=== PATIENT | male | born 1970 | race Caucasian/White ===

== ENCOUNTER 2019-08-11 10:13 | Emergency (ER) | payer OTHER, SELFPAY ==
[2019-08-11 10:37] VITALS: BP 149/103; PULSE 84; RESP 20; TEMP 36.2; O2SAT 97
--- NOTE | 2019-08-11 11:17 | ED.URI ---
HPI - URI/Sore Throat General Chief Complaint: Upper Respiratory Infection Stated Complaint: cough/congested/eyes red Time Seen by Provider: 08/11/19 11:23 History of Present Illness HPI Narrative: A 49 y/o male smoker presents to the with a cough for the past 3 days. . He reports mild nasal congestion mild sore throat when he swallows and fatigue. He notes that his son developed a cough and sore throat roughly 1 week ago and khadra this younger son and had flu B and strep at the end of June. He also notes that this morning when he woke up his eye was pink and crusted shut, so he decided to come to the ED. He denies taking anything for his symptoms or any fevers, ear ache, SOB, CP, edema, or any other medical complaints at this time.He states that he has been to [facility] twice in the past couple weeks, [facility] [employer] [facility] , and he returned on 08/04/19. Patient is advised of possible causes [viral, bacterial, etc.], and will treat broadly. Patient advised that if he desires unavailable, higher testing to call or [email or web address], or call [facility] through [phone] elicited complaint: cough Onset (ago): day(s) (3) Context: sick contacts (son) and recent travel (to [place]) Associated symptoms: sore throat (mild when he swallows) and other (fatigue) Treatments prior to arrival: none Related Data Allergies Allergy/AdvReac Type Severity Reaction Status Date / Time No Known Allergies Allergy Verified 08/11/19 10:40 Review of Systems Review of Systems: Narrative: General/Constitutional: No weight loss,fever. Reports fatigue. Eyes: N0: Redness,discharge Ears/Nose/Throat: No: Epistaxis,ear discharge. Reports a mild sore throat when he swallows. Respiratory: Denies: Hemoptysis or SOB. He reports a cough. Cardio: Denies: chest pain or edema. Gastrointestinal: No Vomiting, Bleeding-rectal Skin: No Lumps, eruption Neurologic: No Focal Weakness,Sz Hematologic: Denies: Petechiae/Purpura Psychiatric: No: Suicida ideationl All Other Systems: Reviewed and Negative [facility] Past Medical History Medical History (Updated 08/11/19 @ 14:31 by Stefan Woodall MD) Medical history unknown Surgical History Surgical History (Updated 08/11/19 @ 11:41 by Andrae Lopez) Surgical history unknown Social History Social History (Updated 08/11/19 @ 11:41 by Andrae Lopez) Smoking status: Smoker, status unknown Exam Narrative: Exam Narrative: General Appearance: Well appearing, Well nourished EYE: PERRLA, Conjunctiva injected OD , left clear Ears: Auditory canal normal, TM normal Nose: Rhinorrhea, Mucousal erythema Mouth/Throat: MM moist, Uvula midline, Pharyngeal erythema Neck: Supple, No adenopathy Respiratory: No respiratory distress, airway patent Musculoskeletal: Non tender, Normal strength Skin: Warm, Dry Neurological: A&O x3, CN II-XII intact Psychiatric: Normal mood, Normal affect Course Vital Signs Vital signs: Vital Signs Temperature 97.2 F L 08/11/19 10:37 Pulse Rate 84 08/11/19 10:37 Respiratory Rate 20 08/11/19 10:37 Blood Pressure 149/103 H 08/11/19 10:37 Pulse Oximetry 97 08/11/19 10:37 Temperature 97.2 F L 08/11/19 10:37 Pulse Rate 84 08/11/19 10:37 Respiratory Rate 20 08/11/19 10:37 Blood Pressure 149/103 H 08/11/19 10:37 Pulse Oximetry 97 08/11/19 10:37 MDM - URI/Sore Throat Lab Data Labs: Influenza A Screen Negative Reference Range: Negative Influenza B Screen Negative Reference Range: Negative Discharge Plan Discharge Clinical Impression: History of viral infection Acute conjunctivitis, right eye Qualifiers: Acute conjunctivitis type: unspecified Qualified Code(s): H10.31 - Unspecified acute conjunctivitis, right eye Patient Disposition: Home, Self-Care Condition: Stable Instructions: Antibiotic Form, Influenza (ED), Conjunctivitis (ED) Additional Instru
== END 2019-08-11 12:03 | disposition home or self-care (01) ==
PROVIDERS: Emergency Provider Emergency Medicine; PCP Family Medicine
DX: H10.31 Unspecified acute conjunctivitis, right eye (principal); Z86.19 Personal history of other infectious and parasitic diseases
CPT/HCPCS: 87804; 99213; G0463

== ENCOUNTER 2022-12-21 12:36 | Outpatient (CLI) | payer OTHER, SELFPAY ==
--- NOTE | ~2022-12-21 | US_ITS ---
US scrotum doppler INDICATION: Right testicular pain and swelling TECHNIQUE: Testicular sonogram utilizing grayscale and color Doppler FINDINGS: The testes are normal in size and appearance. No focal lesions are seen. The right testes measures 4.4 x 3.3 x 3.7 cm centimeters, and the left testis measures 4.4 x 3 x 4.3 cm cm. There is n ormal vascular flow to both testes. The right and left epididymides appear normal. There are small-moderate bilateral hydroceles. There are bilateral varicoceles. IMPRESSION: 1. Bilateral varicoceles. 2: Small-moderate bilateral hydroceles. Reviewed, dictated and finalized at location A.
== END 2022-12-21 12:37 ==
PROVIDERS: PCP Physician Assistant; Visit Provider Physician Assistant
DX: I86.2 Pelvic varices (principal); I86.1 Scrotal varices; N43.3 Hydrocele, unspecified; N50.811 Right testicular pain
CPT/HCPCS: 76870; 93976

== ENCOUNTER 2023-02-28 08:59 | Outpatient (CLI) | payer OTHER, SELFPAY ==
--- NOTE | 2023-03-01 19:27 | WPDSLEEPSTUD ---
Sleep Study Date of Study: 02/28/23 Ordering Provider: Loretta Cardenas, LEATHER ROLLER Interpreting Physician: Seema Guzmán MD Sleep Study Type: Split Polysomnogram Height: 1.78 m Weight: 127.006 kg Body Mass Index: 40.1 Neck Circumference (inches): 18 [place]: 9 Reason for Sleep Study Fatigue for months Sleep History Vin Juarez is a 52-year-old man with loud snoring and episodes of waking at night feeling short of breath. He has had constant fatigue for months. He has difficulty falling asleep and staying asleep. He has a difficult time waking in the morning. He always awakens from sleep feeling short of breath. He frequently awakens at night with heartburn, belching or coughing. He always snores loudly enough that others complain. On occasion, he has difficulty sleeping when he has a cold. He occasionally wakes up gasping for breath at night. He frequently has breathing problems at night reported to him by others. Rarely sweats excessively at night. He occasionally notices his heart pounding irregularly at night. He occasionally falls asleep during the day. He does not fall asleep involuntarily or while driving. He does not have loss of muscle tone with strong emotion. He does not have daytime difficulties due to excessive sleepiness, he is a telecommunications cabinet installer. He does not feel paralyzed on waking or falling asleep. He does not have vivid dreamlike scenes upon awakening or falling asleep. He does not feel afraid to go to sleep. He does not have nightmares. He occasionally remembers his dreams. He frequently has racing thoughts. He does not feel sad or depressed. Frequently has anxiety. He rarely has muscular tension. He does not notice parts of his body jerking. He does not kick at night. He does not have crawling or aching feelings in his legs. He denies any kind of leg pain during the night. He does not have morning jaw pain. He does not grind his teeth during sleep. He rarely is bothered by pain during the day. He rarely is awakened by pain at night. He occasionally wakes up feeling stiff in the morning with sore or achy muscles, never wakes up with pain in the neck and spine. Normal bedtime is 10:00 p.m., falling asleep within 30 minutes. He typically wakes between 3 and 4 times during the night for a few minutes, goes to the bathroom and watches television. He is able to return to sleep in several minutes. These awakenings occur soon after falling asleep and in the middle of the night. He wakes at 5:30 a.m. On weekends, bedtime is still 10:00 p.m., wake time is 6:30 a.m.. He estimates getting between 4 and 5 hours of sleep at night. He takes naps in the afternoon or evening. A short nap lasting 10 or 15 minutes is not refreshing. He is usually drowsy for an hour after waking. He feels better in the afternoon compared to other times of day. Habits: No tobacco for many years. He drinks caffeine. No alcohol or recreational substances. [facility] Past Medical History Medical History (Updated 03/04/23 @ 10:09 by Seema Guzmán MD) GERD (gastroesophageal reflux disease) Hypertension Mixed dyslipidemia Family History Family History Father Heart disease Mother Lymphadenitis, acute Social History Social History Smoking packs per day: 0.5 Smoking cigarettes per day: 10.0 Smoking status: Former smoker Tobacco type: cigarettes Alcohol intake: current Substance use: never Substance use type: does not use Lack of Transportation: No Lack of Food: Never True Current Housing: I Have Housing Concerned About Future Housing: No Difficulty Paying Gas/Electric Bills: No Difficulty Paying for Meds: No Currently Unemployed: No Education: High School Diploma/GED Difficulty w/ Childcare or Family Care: No Living arrangements: with family Occupation/Educati
[2023-03-04 09:51] VITALS: BMI 40.1
== END 2023-03-01 07:37 | disposition home or self-care (01) ==
LOC: ANHCSM 09:00
PROVIDERS: PCP Family Medicine; Visit Provider Nurse Practitioner Adult Health
DX: R53.83 Other fatigue (principal); G47.33 Obstructive sleep apnea (adult) (pediatric)
CPT/HCPCS: 95811

== ENCOUNTER 2023-04-26 15:12 | Outpatient (CLI) | payer OTHER, SELFPAY ==
--- NOTE | ~2023-04-26 | CT_ITS ---
EXAMINATION: CT diagnostic chest wo con DATE: 04/26/2023 15:35 INDICATION: R06.09 - Other forms of dyspnea TECHNIQUE: Computed tomography (CT) of the chest was performed without intravenous contrast. Addition al 3D reconstructions utilizing coronal maximum intensity projection (MIP) were performed. Automated exposure control and iterative reconstruction technique were employed. The dose-length product was 91 1.36 mGy-cm. COMPARISON: None FINDINGS: 5 mm subpleural nodule at the posterior right upper lobe. Additional small pleural-based calcified no dules posteriorly in the bilateral lower lobes along with a few calcified bilateral hilar lymph nodes consistent with old granulomatous disease. No pneumonia, pulmonary edema, pleural effusion or pneumo thorax. Heart size is normal. Small amount of atherosclerotic coronary artery calcification. No peric ardial effusion. No pathologically enlarged thoracic lymphadenopathy. And visualized upper abdomen is unremarkable. Mild thoracic spondylosis. Small lucent hemangioma with thickened trabecular pattern a t T6. IMPRESSION: 1. 5 mm subpleural nodule at the right upper lobe. If the patient is low risk for lung cancer, no fol low-up is needed. If the patient is high risk (i.e., history of smoking or asbestos or significant ra diation exposure), optional follow-up chest CT could be considered at 12 months. Reviewed, dictated and finalized at location A. IN[employer] AND APPLICATOR IMPRESSION: 1. 5 mm subpleural nodule at the right upper lobe. If the patient is low risk f or lung cancer, no follow-up is needed. If the patient is high risk (i.e., hist ory of smoking or asbestos or significant radiation exposure), optional follow- up chest CT could be considered at 12 months.
== END 2023-04-26 15:13 | disposition home or self-care (01) ==
PROVIDERS: PCP Family Medicine; Visit Provider Physician Assistant
DX: R06.09 Other forms of dyspnea (principal); G47.33 Obstructive sleep apnea (adult) (pediatric); Z87.891 Personal history of nicotine dependence; R91.1 Solitary pulmonary nodule
CPT/HCPCS: 71250

== ENCOUNTER 2023-05-15 09:12 | Outpatient (CLI) | payer OTHER, SELFPAY ==
--- NOTE | 2023-05-15 13:08 | WPDSIXMINUTE ---
Six Minute Walk Procedure Procedure Performed Pulmonary Stress Test (6 min walk) Six Minute Walk Six Minute Walk: This is a 6 minute walk test. The test was performed and interpreted in accordance with the 2014 ERS/ATS task force guidelines. Findings: The patient's resting room air oxygen saturation measured by pulse oximetry was 95% and heart rate was 77 bpm. Patient ambulated for 366 meters and oxygen saturation remained 93 to 95%. Heart rate at the end of the study was 103 bpm. The patient did not qualify for supplemental oxygen at rest or with ambulation. There are no prior studies for comparison.
--- NOTE | 2023-05-15 13:09 | P.PCNPFT_ITS ---
PFT Procedure Performed PFT Procedure Performed Spirometry with Pre/Post Bronchodilator Plethysmography (Lung Vol) Diffusing Cap (DLCO) Flow Vol Loop PFT Interpretation This is a pulmonary function test with pre and post-bronchodilator spirometry, plethysmography and diffusing capacity. The test was performed and results interpreted in accordance with the 2019 and 2005 ATS/ERS Task Force guidelines respectively using the Global Lung Function Initiative-2012 reference equations. Patient demonstrated good effort and cooperation. Reproducibility criteria were met. The quality of the pre bronchodilator spirometry maneuver was Grade A and post bronchodilator spirometry maneuver was Grade A. Findings: Spirometry: The contour the inspiratory and expiratory flow tracing are normal. The pre bronchodilator FVC is 2.97 L, 59% predicted. The pre bronchodilator FEV1 is 2.50 L, 63% predicted. The pre bronchodilator FEV1: FVC ratio was 84%. The post bronchodilator FVC is 3.29 L, representing an 11% increase. The post bronchodilator FEV1 is 2.68 L, representing a 7% increase. The post bronchodila tor FEV1: FVC ratio was 82%. Plethysmography: The total lung capacity is 6.02 L, 86% predicted. The functional residual capacity is 3.79 L, 106% predicted. The residual volume is 2.61 L, 128% predicted. Diffusing capacity: The diffusing capacity unadjusted for hemoglobin and carboxyhemoglobin is 23.0, 75% predicted. The diffusing capacity adjusted for alveolar volume is 6.03, 132% predicted. Impression: The spirometry is normal without evidence of an obstructive abnormality. The lung volumes are normal without evidence of and restrictive abnormality. The FVC and FEV1 are moderately decreased without an obstructive or restrictive abnormality. This is an abnormal but nonspecific finding. There is no significant improvement after inhaling a single dose of albuterol. The diffusing capacity unadjusted for hemoglobin and carboxyhemoglobin is normal and is increased when when adjusted for alveolar volume. There are no prior studies for comparison
== END 2023-05-15 09:13 | disposition home or self-care (01) ==
LOC: ANHPFT 09:15
PROVIDERS: PCP Family Medicine; Visit Provider Physician Assistant
DX: G47.33 Obstructive sleep apnea (adult) (pediatric) (principal); R06.09 Other forms of dyspnea; Z87.891 Personal history of nicotine dependence
CPT/HCPCS: 94060; 94618; 94726; 94729